=== PATIENT | male | born 1950 | race Caucasian/White ===

== ENCOUNTER 2019-03-03 08:24 | Inpatient (IN) ==
[2019-02-26 12:19] LABS: Appearance,Urine CLEAR; Bilirubin,Urine NEG (NEG); Color,Urine YELLOW; Glucose,Urine (UA) NEGATIVE (NEG); Leukocyte Esterase,Urine NEG /uL (NEG); Protein,Urine NEG (NEG); Specific Gravity,Urine 1.014 (1.000-1.035); Urine Blood NEG mg/dL (<0.03); Urobilinogen,Urine NEG (NEG)
[2019-02-26 13:28] LABS: Basophils # (Auto) 0 K/mcL (0.0-0.3); Basophils % (Auto) 0.5 % (0.0-2.0); Eosinophils # (Auto) 0.2 K/mcL (0.0-0.7); Eosinophils % (Auto) 2.1 % (0.0-7.0); Granulocytes % (Auto) 68.4 % (38.0-78.0); Lymphocytes # (Auto) 1.5 K/mcL (1.5-4.8); Mean Corpuscular HGB Conc 32.8 g/dL (31.0-36.0); Monocytes # (Auto) 0.7 K/mcL (0.1-0.9); Platelet Count 277 K/mcL (140-440); RBC 4.81 M/mcL (4.50-5.90); Red Cell Distribution Width 12.5 % (11.5-14.5)
[2019-02-26 14:27] LABS: Blood Urea Nitrogen 12 mg/dl (8-23)
[2019-02-26 14:37] LABS: Estimated Average Glucose(eAG) 126 mg/dL
[~2019-03-03 08:24] MED LIST: 0.9 % SODIUM CHLORIDE 9 ML, KETOROLAC 30 MG, ROPIVACAINE HCL/PF 49.5 ML, EPINEPHrine 0.... IJ SCH; CELECOXIB 200 MG CAPSULE PO SCH; PREGABALIN 75 MG CAPSULE PO SCH; ceFAZolin 3 GM in DEXTROSE 5% IN WATER 50 ML IV SCH; oxyCODONE 10 MG TAB.ER.12H PO SCH
[2019-03-03] MEDS ORDERED: TRANEXAMIC ACID 1,000 MG/10 ML VIAL IV ONE (13:05)
[2019-03-03] MEDS ORDERED: MIDAZOLAM 2 MG/2 ML VIAL IV ONE (13:05)
[2019-03-03] MEDS ORDERED: ONDANSETRON 4 MG/2 ML VIAL IV ONE (13:05)
[2019-03-03] MEDS ORDERED: DEXAMETHASONE 4 MG/ML VIAL IV ONE (13:05)
[2019-03-03] MEDS ORDERED: LIDOCAINE HCL/PF 100 MG/5 ML SYRINGE IV ONE (13:05)
[2019-03-03] MEDS ORDERED: PROPOFOL 200 MG/20 ML VIAL IV ONE (13:05)
[2019-03-03] MEDS ORDERED: KETAMINE 100 MG/ML ML IV ONE (13:05)
[2019-03-03] MEDS ORDERED: SUCCINYLCHOLINE 20 MG/ML ML IV ONE (13:05)
[2019-03-03] MEDS ORDERED: GLYCOPYRROLATE 0.2 MG/ML VIAL IV ONE (13:05)
[2019-03-03] MEDS ORDERED: fentaNYL 100 MCG/2 ML VIAL IV ONE (13:05)
[2019-03-03] MEDS ORDERED: ePHEDrine 50 MG/ML AMPUL IV ONE (13:05)
[2019-03-03] MEDS ORDERED: GENTAMICIN SULFATE 800 MG/20 ML VIAL IR ONE (13:40)
--- NOTE | 2019-03-03 16:34 | Brief Operative Note ---
Pre-op diagnosis: right infected total knee arthroplasty staged Post-op diagnosis: same Procedure: right total knee arthroplasty revision both components Grafts/Implants: Yes Anesthesia: spinal Complications: none Surgeon: Rosalio Fonscea Dental Laboratory Manager: Latoya Gonzáles Estimated blood loss (cc): 250 Tourniquet Time (Minutes): 125 Specimens Removed/Pathology: other (cultures x2, frozen x 3) Condition: stable Disposition: PACU
[2019-03-03] MEDS ORDERED: FLEETS ADULT ENEMA PR PRN (16:36)
[2019-03-03] MEDS ORDERED: METHOCARBAMOL 750 MG TABLET PO PRN (16:36)
[2019-03-03] MEDS ORDERED: BISACODYL 10 MG SUPP.RECT PR PRN (16:36)
[2019-03-03] MEDS ORDERED: POLYETHYLENE GLYCOL 3350 17 GM PACKET PO PRN (16:36)
[2019-03-03] MEDS ORDERED: ONDANSETRON 4 MG ODT TABLET SL PRN (16:36)
[2019-03-03] MEDS ORDERED: BENZOCAINE/MENTHOL 1 LOZENGE PO PRN (16:36)
[2019-03-03] MEDS ORDERED: ONDANSETRON 4 MG/2 ML VIAL IV PRN ×2 (16:36→16:46)
[2019-03-03] MEDS ORDERED: TRANEXAMIC ACID 1,000 MG/10 ML VIAL IV SCH (16:36)
[2019-03-03] MEDS ORDERED: MAGNESIUM HYDROXIDE 30 ML ORAL.SUSP PO PRN (16:36)
[2019-03-03] MEDS ORDERED: IPRATROPIUM/ALBUTEROL 3 ML AMPUL.NEB NEB PRN (16:46)
[2019-03-03] MEDS ORDERED: ePHEDrine 50 MG/ML AMPUL IV PRN (16:46)
[2019-03-03] MEDS ORDERED: METOPROLOL TARTRATE 5 MG/5 ML VIAL IV PRN (16:46)
[2019-03-03] MEDS ORDERED: diphenhydrAMINE 50 MG/ML VIAL IV PRN (16:46)
[2019-03-03] MEDS ORDERED: NALOXONE HCL 0.4 MG/ML VIAL IV PRN (16:46)
[2019-03-03] MEDS ORDERED: ATROPINE SULFATE 0.4 MG/ML VIAL IV PRN (16:46)
[2019-03-03] MEDS ORDERED: fentaNYL 100 MCG/2 ML VIAL IV PRN (16:46)
[2019-03-03] MEDS ORDERED: PROMETHAZINE 25 MG/ML VIAL IV PRN (16:46)
[2019-03-03] MEDS ORDERED: FLUMAZENIL 0.1 MG/ML ML IV PRN (16:46)
[2019-03-03] MEDS ORDERED: ACETAMINOPHEN 1,000 MG/100 ML BOTTLE IV ONE (16:46)
[2019-03-03] MEDS ORDERED: METHOCARBAMOL 1,000 MG/10 ML VIAL IV PRN (16:46)
[2019-03-03] MEDS ORDERED: LACTATED RINGERS 1,000 ML IV SCH (17:00)
--- NOTE | 2019-03-03 17:30 | XRay Report ---
CLINICAL INFORMATION: Left knee replacement TECHNIQUE: AP and crosstable lateral portable right knee COMPARISON: None. FINDINGS: Status post right total knee arthroplasty. Femoral and tibial components are in anatomic positions. As postsurgical soft tissue and intra-articular gas IMPRESSION: Right total knee arthroplasty Interpreted and Authenticated by: Roaslio Nova 03/03/19
[2019-03-03] MEDS: KETOROLAC 15 MG/ML VIAL IV SCH (18:12)
[2019-03-03] MEDS: LACTATED RINGERS 1,000 ML IV SCH ×2 (18:51→20:46)
[2019-03-03] MEDS: DOCUSATE SODIUM 100 MG CAPSULE PO SCH (19:43)
[2019-03-03] MEDS: SENNOSIDES 1 TABLET PO SCH (19:43)
[2019-03-03] MEDS: SIMVASTATIN 40 MG TABLET PO SCH (19:44)
[2019-03-03] MEDS: ASPIRIN 325 MG ENTERIC COATED TABLET PO SCH (19:44)
[2019-03-03] MEDS: HYDROcodone/APAP 10/325MG TABLET PO PRN ×2 (19:44→21:33)
[2019-03-03] MEDS: metFORMIN 500 MG TABLET PO SCH (19:45)
[2019-03-03] MEDS: ceFAZolin 1 GM VIAL IV SCH (19:46)
[2019-03-03] MEDS: 0.9 % SODIUM CHLORIDE 10 ML SYRINGE IV SCH (20:20)
[2019-03-04] MEDS: KETOROLAC 15 MG/ML VIAL IV SCH ×5 (00:02→23:43)
[2019-03-04] MEDS: LACTATED RINGERS 1,000 ML IV SCH ×3 (00:34→16:58)
[2019-03-04] MEDS: HYDROcodone/APAP 10/325MG TABLET PO PRN ×4 (04:07→21:21)
[2019-03-04] MEDS: ceFAZolin 1 GM VIAL IV SCH (04:07)
[2019-03-04] MEDS: 0.9 % SODIUM CHLORIDE 10 ML SYRINGE IV SCH ×4 (05:27→23:43)
--- NOTE | 2019-03-04 06:51 | Discharge Summary ---
Providers - Providers Patient information: Note initiated : 03/04/19 at 6:49 am Service Date, if different from initiated Date: [] Patient: Garo Malik 68 y/o M admitted on 03/03/19 for Right Total Knee Revision - Second Stage. Chief Complaint: [POD #1 s/p right TKA revision Doing very well. Reports minimal pain this morning. Denies numbness, tingling, chest pain, calf pain, SOB. Has no questions or concerns.] Discharge date: 03/04/19 Hospitalization Hospital course: Patient was brought into OR yesterday for right TKA revision. Intraoperatively, frozen sections were evaluated and found to be negative for pathology. The permanent knee revision was placed. The surgery went on without complication. He was admitted overnight for observation and pain control. He will have a session of PT later today and discharge to home. He will follow up in the office for 10-14 days for post op care. Discharge diagnosis: septic arthritis Procedures: right total knee arthroplasty revision Exam - Exam Incision healing: Yes Incision draining: No Incision red: No Incision swollen: No Incision inflamed: No Clean and dry: Yes Weight bearing status: as tolerated Range of motion: full foot/ankle. 0-10 deg knee extension/60 deg flexion Ortho Discharge - TKA - Patient Instructions Diet: Regular Diet Activity: weight bearing as tolerated Total Knee Protocol: For Total Knee: Start ROM YAMILE with stationary bike or rocking chair. Work on gaining full extension of knee. Posterior dislocation precautions provided. Hip abductor strengthening and gait training instructions provided. Apply Cryocuff as instructed. Dressing Care: May shower in 2 days, Other (dermabond) - Follow Up Plan Follow Up Appointments: Latoya Gonzáles PA-C [Physician Landscape Engineer] - 03/18/19 9:40 am Disposition: Home, Self-Care Prognosis: Good Rehab Potential: Good I certify that the patient requires SNF services: No Overall status at discharge: patient is progressing back to baseline - Orders For Discharge Prescriptions: Aspirin [Ecotrin] 325 mg PO BID #60 tab.ec HYDROcodone/APAP 10/325MG [[place] 10-325Mg] 1 - 2 tab PO Q4HP PRN #60 tab PRN Reason: Pain Level 3-6 Additional Discharge Orders: Physical Therapy at Discharge - TKA Location: None Selected Walker Location: None Selected Pending Studies Resuscitation Status Full Code Diet Regular Diet Start SatMar 03 1637 Hydrocodone Bitart/Acetaminophen ([place] 10/325mg) 0 tab PO Q4HP PRN PRN Reason: PAIN LEVEL 3-6 Last Admin: 03/04/19 04:07 Dose: 2 tab Documented by: Admin: 03/03/19 21:33 Dose: 1 tab Documented by: Admin: 03/03/19 19:44 Dose: 1 tab Documented by: AASEL Aspirin (Ecotrin) 325 mg PO BID [facility] Last Admin: 03/03/19 19:44 Dose: 325 mg Documented by: ASAEL Docusate Sodium (Colace) 100 mg PO BID [facility] Last Admin: 03/03/19 19:43 Dose: 100 mg Documented by: ASAEL Lactated Ringer's (Lactated Ringers) 1,000 mls @ 125 mls/hr IV .Q8H [facility] Last Admin: 03/04/19 00:34 Dose: Not Given Documented by: Admin: 03/03/19 20:46 Dose: 125 mls/hr Documented by: Admin: 03/03/19 18:51 Dose: Not Given Documented by: ASAEL Ketorolac Tromethamine (Toradol) 15 mg IV Q6 [facility] Stop: 03/05/19 12:01 Last Admin: 03/04/19 05:27 Dose: 15 mg Documented by: Admin: 03/04/19 00:02 Dose: 15 mg Documented by: Admin: 03/03/19 18:12 Dose: 15 mg Documented by: FRANCISCO JAVIER [facility]) [facility] Last Admin: 03/03/19 19:45 Dose: 500 mg Documented by: ASAEL Methocarbamol (Robaxin) 750 mg PO Q6HP PRN PRN Reason: Muscle Spasm Last Admin: 03/04/19 00:03 Dose: 750 mg Documented by: ASAEL Morphine Sulfate (Morphine) 0 mg IV Q1HP PRN PRN Reason: PAIN LEVEL > 6 Last Admin: 03/03/19 22:42 Dose: 2 mg Documented by: ASAEL Senna (Senokot) 2 tab PO HS [facility] Last Admin: 03/03/19 19:43 Dose: 2 tab Documented by: ASAEL Simvastatin (Zocor) 40 mg PO QHS [facility] Last Admin: 03/03/19 19:44 Dose: 40 mg Documented by: ASAEL Sodium Chloride (Saline Flush) 10 ml IV Q8 [facility] Last Admin: 03/04/19 05:27 Dose: 10 ml Documented by: Admin: 03/03/19 20:20 Dose: Not Given Documented by: ASAEL Shift Summary 03/04/19 04:52 Shift Summary by Josie Finnegan Pt able to stand at bedside and use urinal. PRV 274 at 0420. Pt taking norco 2 tabs last dose at 0400. Pt has received Robaxin x1 and morphing 2mg x1 this shift. Pt tolerating CPM up to 75 deg for 4 hours. Pt has home C-Pap in room. On RA. IV SL. Receiving scheduled Toradol. AV boots, and cryo used this shift. Reid to right knee CDI. Will update with verbal report. Initialized on 03/04/19 04:52 - END OF NOTE Exam Vital signs: Temp Pulse Resp BP Pulse Ox 97.6 F 65 16 109/62 94 03/04/19 04:01 03/04/19 04:51 03/04/19 04:01 03/04/19 04:01 03/04/19 04:01 Constitutional: no acute distress Neurologic: other (extremities NVI) Psychiatric: oriented to person, place and time Additional findings: DP/PT pulses 2+
[2019-03-04] MEDS: DOCUSATE SODIUM 100 MG CAPSULE PO SCH ×2 (08:04→21:21)
[2019-03-04] MEDS: LISINOPRIL 5 MG TABLET PO SCH (08:04)
[2019-03-04] MEDS: METOPROLOL SUCCINATE 50 MG TAB.XL.24H PO SCH (08:04)
[2019-03-04] MEDS: metFORMIN 500 MG TABLET PO SCH ×2 (08:04→17:18)
[2019-03-04] MEDS: HYDROCHLOROTHIAZIDE 25 MG TABLET PO SCH (08:05)
[2019-03-04] MEDS: ASPIRIN 325 MG ENTERIC COATED TABLET PO SCH ×2 (08:10→21:21)
--- NOTE | 2019-03-04 08:17 | Operative Note ---
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 PROCEDURE: Revision right total knee arthroplasty femur, tibia, and patella. SURGEON: Tello Fonseca M.D. SOFTWARE ENGINEER BACKEND SURGEON: Latoya Gonzáles PA-C. ANESTHESIA: Spinal with LMA assist. ESTIMATED BLOOD LOSS: 250 mL. COMPLICATIONS: None noted. SPECIMENS REMOVED: Frozen sections x3 to Pathology and cultures x2. DRAINS: None. TOURNIQUET TIME: 130 minutes at 200 mmHg spaced out. IMPLANTS: DePuy Attune Revision distal femoral augment size 8, 4 mm cemented; DePuy Attune Revision CRS rotating platform insert size 8, 8 mm AOX; DePuy Attune Revision tibial base rotating platform size 6 cemented; DePuy Attune Revision tibial sleeve Porocoat fully-coated 45 mm; DePuy Revision pressfit stem 18 x 60 mm; DePuy Attune Revision distal femoral augment size 8, 16 mm; DePuy Revision femoral sleeve Porocoat fully-coated 35 mm; DePuy Revision posterior femoral augment size 8, 8 mm cemented; DePuy Attune Revision CRS femoral size 8 right cemented; Depuy Attune Revision posterior femoral augment size 8, 8 mm cemented; DePuy Attune Revision pressfit stem 18 x 60 mm; DePuy Attune patella medialized dome 40 mm cemented AOX; PCMW2 gentamicin cement 20 grams x6. INDICATIONS: The patient had a previous total knee arthroplasty a couple of years ago and went on to get infected. We did a first-stage procedure, and he has now been cleared for final reconstruction. Radiographs have confirmed a spacer, and we elected to proceed with a revision total knee arthroplasty. The risks and benefits were discussed with the patient in detail including, but not limited to, the risks of anesthesia, problems with the heart or lungs related to anesthesia, infection, compromise or injury to the nerves and blood vessels, deep venous thrombosis, pulmonary embolism, pneumonia, continued pain after surgery, worsening pain or symptoms after surgery, swelling, loss of motion, instability, leg length discrepancy, and need for repeat surgery. DESCRIPTION OF PROCEDURE: The patient was seen in the pre-anesthesia waiting room where all questions were answered and the correct side and site were identified and marked. The patient was transferred to the operating room and administered the anesthetic and given pre-operative antibiotics. A time-out was then called. The extremity was prepped and draped, exsanguinated, and the tourniquet was inflated to 300 mmHg. A midline skin incision was made, and he had a significant amount of prepatellar bursitis. I did a complete prepatellar bursectomy. There were some beads that were not completely dissolved and these were removed as well. We then did a standard medial parapatellar arthrotomy and debrided scar tissue inside the joint. I took cultures deep inside from the fluid around the femoral and tibial stem in the central portion of the knee x2. I then took one section from the infrapatellar fat pad and scar as a frozen section. I removed all of the scar tissue from the infrapatellar fat pad as well as the suprapatellar pouch. We then brought the knee up into flexion. We first removed the femoral implant and then we removed the tibial implant which was a polyethylene spacer. We removed all of the cement both from the femur and the tibia and then assessed components. I used a reamer, and we reamed up to a size 16 both on the femur and then the tibia. Our attention was now turned towards the tibia. We used the distal reaming and then used a sleeve and went up to a 45 mm with good fit and fixation. I then cut a freshened cut on the tibia from this region. We placed the size 6 tibial rotating platform and got the position appropriately, including the sleeve, the stem and the rotating platform tibial base. Once this was built and constructed, we brought it back to the back table. Our attention was next turned towards the femur. We reamed up again to a size 16. We used the distal femoral cutting block and cut the distal femur. We augmented 16 mm along the medial side and 4 mm along the lateral side. We then did the chamfer cuts and the box cut. We had a distal augment of 8 mm on both sides. I then used the central broach, and we used the Revision femoral sleeve 35 mm, appropriately positioned it, as well as the femur. We placed the femur and the tibial trials in, and then we used a polyethylene rotating platform and found the best fixation at a size 8. He had full extension, flexion, and good stability in anterior and posterior translation, as well as varus and valgus stress. I then did a refresh cut on the patella and sized this to a size 41 mm trial and performed a lateral facetectomy. The knee was taken through range of motion. There was good patellar tracking, good motion and stability. We then assembled all of the final components on the back table. We cemented the distal femoral and tibial but left the stem and the Porocoat fully-coated sleeves without cement in a standard fashion. We allowed the cement to dry. We placed the final polyethylene component and the patellar components. We again irrigated with Irrisept and saline. We again checked motion and stability and it looked excellent. Irrigation with 3 liters of antibiotic saline was then performed using jet-lavage. We let the tourniquet down and coagulated bleeding vessels. We injected a 100 cubic centimeter volume including Ropivacaine 49.25 cubic centimeters at 5 milligrams per cubic centimeter, Ketorolac 30 milligrams, and Epinephrine 0.5 milligrams into 100 cubic centimeters volume of normal saline. We closed the retinaculum with #2 Stratafix and 0 Vicryl. We closed the subcutaneous tissue and skin in layers out to tip in the skin. A sterile pressure dressing was applied. All needle and sponge counts were correct. The patient was transferred to the recovery room in stable condition. STACY:deborah Job ID: [id number] Doc ID: [id number] Tello Fonseca MD
--- NOTE | 2019-03-04 10:42 | Surgical Pathology Report ---
HISTOLOGY SPECIMEN MICROSCOPIC DIAGNOSIS SPECIMEN A - SOFT TISSUE, RIGHT KNEE, BIOPSY: -- FIBROVASCULAR TISSUE WITH FIBROSIS AND PATCHY CHRONIC INFLAMMATION. -- LESS THAN ONE NEUTROPHIL/hpf. SPECIMEN B - SOFT TISSUE, RIGHT FEMUR, BIOPSY: -- LAMELLAR BONE AND FIBROVASCULAR TISSUE WITH MILD CHRONIC INFLAMMATION. -- LESS THAN ONE NEUTROPHIL/hpf. SPECIMEN C - SOFT TISSUE, RIGHT TIBIA, BIOPSY: -- LAMELLAR BONE AND FIBROVASCULAR TISSUE WITH MILD CHRONIC INFLAMMATION. -- LESS THAN ONE NEUTROPHIL/hpf. (ACP:domenico) INTRAOPERATIVE CONSULTATION FROZEN SECTION DIAGNOSES (Performed at [facility], [place]) SPECIMEN A - KNEE, RIGHT, BIOPSY: -- LESS THAN ONE NEUTROPHIL/hpf. SPECIMEN B - KNEE, RIGHT FEMUR, BIOPSY: -- LESS THAN ONE NEUTROPHIL/hpf. SPECIMEN C - KNEE, RIGHT TIBIA, BIOPSY: -- LESS THAN ONE NEUTROPHIL/hpf. (ACP:sln) GROSS DESCRIPTION Specimen A: Received fresh is a 2.0 x 2.1 x 0.6 cm fragment. Entirely submitted for frozen section analysis and resubmitted for permanent sections as FSA. Specimen B: Received fresh as femur, is a 1.2 x 1.0 x 0.8 cm fragment. Entirely submitted for frozen section analysis and resubmitetd for permanent sections as FSB. Specimen C: Received fresh are multilple fragments of bone and soft tissue 2.0 x 1.2 x 0.6 cm. Entirely submitted for frozen section analysis and resubmitted for permanent sections as FSC. (ACP:sln) Electronically Signed by: Van Mata M.D.
[2019-03-04] MEDS: SIMVASTATIN 40 MG TABLET PO SCH (21:21)
[2019-03-04] MEDS: SENNOSIDES 1 TABLET PO SCH (21:21)
[2019-03-05] MEDS: LACTATED RINGERS 1,000 ML IV SCH ×2 (00:05→08:28)
[2019-03-05] MEDS: HYDROcodone/APAP 10/325MG TABLET PO PRN ×2 (04:44→08:27)
[2019-03-05] MEDS: 0.9 % SODIUM CHLORIDE 10 ML SYRINGE IV SCH (04:52)
[2019-03-05] MEDS: KETOROLAC 15 MG/ML VIAL IV SCH (05:53)
--- NOTE | 2019-03-05 07:05 | Orthopedic Progress Note ---
Subjective Patient information: Note initiated : 03/05/19 at 7:04 am Service Date, if different from initiated Date: [] Patient: Garo Malik 68 y/o M admitted on 03/03/19 for Right Total Knee Revision - Second Stage. Chief Complaint: [] Interval history: doing much better today. no pain Objective Vital signs: Vital Signs Temp Pulse Resp BP Pulse Ox 03/05/19 04:22 98.7 F 64 16 101/56 96 03/05/19 00:10 98.6 F 64 16 117/58 91 03/04/19 19:55 98.3 F 64 16 118/66 92 03/04/19 17:43 97.6 F 70 16 97/55 94 03/04/19 11:29 98.1 F 75 16 111/69 93 03/04/19 08:18 97.9 F 73 16 109/67 93 Intake and Output 03/04/19 03/05/19 03/05/19 21:59 05:59 13:59 Intake Total 800 150 Output Total 900 200 Balance -100 -50 Intake: Oral 800 150 Output: Void Amount 900 200 Other: Urine Appearance Clear Urine Color Bright Yellow Straw Urine Odor Normal Normal # Voids 1 1 Weight 289 lb Intake & Output: Intake & Output 03/04/19 03/05/19 03/05/19 21:59 05:59 13:59 Intake Total 800 150 Output Total 900 200 Balance -100 -50 Weight 289 lb Intake: Oral 800 150 Output: Void Amount 900 200 Other: Urine Appearance Clear Urine Color Bright Yellow Straw Urine Odor Normal Normal # Voids 1 1 Incision: Yes healing Incision clean and dry: Yes Dressing: Yes clean, Yes dry, Yes intact Weight bearing status: full Neurological exam IM: Yes abnormal gait, Yes oriented X3, Yes neurovascular intact Extremities exam IM: No calf tenderness, Yes Foot pink and warm, Yes neurovascular intact - Labs CBC & BMP: 03/05/19 04:20 02/26/19 10:22 Labs: Orthopedic Labs 02/26/19 10:22 PT 13.3 INR 1.0 03/05/19 03/04/19 02/26/19 04:20 04:15 10:22 Hgb 11.3 L 12.8 L 15.2 Hct 33.4 L 37.3 L 46.2 Assessment and Plan (1) History of total right knee replacement pod 2 s/p revision tka wbat pain control dvt prophylaxis d/c planning home today Status: Chronic Comment: 07/26/15, revision done 08/13/18
[2019-03-05] MEDS: metFORMIN 500 MG TABLET PO SCH (08:22)
[2019-03-05] MEDS: HYDROCHLOROTHIAZIDE 25 MG TABLET PO SCH (08:22)
[2019-03-05] MEDS: METOPROLOL SUCCINATE 50 MG TAB.XL.24H PO SCH (08:22)
[2019-03-05] MEDS: DOCUSATE SODIUM 100 MG CAPSULE PO SCH (08:22)
[2019-03-05] MEDS: ASPIRIN 325 MG ENTERIC COATED TABLET PO SCH (08:23)
[2019-03-05] MEDS: LISINOPRIL 5 MG TABLET PO SCH (08:23)
== END 2019-03-05 09:55 | disposition home or self-care (01) | DRG 467 ==
LOC: MEDSUR 08:24
PROVIDERS: ADMIT Orthopaedic Surgery Sports Medicine; ATTEND Orthopaedic Surgery Sports Medicine